=== PATIENT | female | born 1970 | race Two or more races ===

== ENCOUNTER → 2017-09-27 | Outpatient (CLI) | payer OTHER ==
[~2017-09-27] MED LIST: KENALOG-1010 MG/ML IM; ORPH100T PO; SYNTHROID200 MCG PO; ULTRACET PO; XOPENEX1.25 MG/0. IH
== END | disposition home or self-care (01) ==
LOC: RAD 13:36
DX: M54.5 Low back pain (principal); M22.41 Chondromalacia patellae, right knee

== ENCOUNTER 2017-11-01 13:00 | Outpatient (CLI) | payer OTHER | END 2017-11-01 19:53 | disposition home or self-care (01) | LOC: LAB 13:00 | DX: M06.09 Rheumatoid arthritis without rheumatoid factor, multiple sites (principal); M32.8 Other forms of systemic lupus erythematosus ==

== ENCOUNTER → 2017-12-02 | Outpatient (CLI) | payer OTHER | END | disposition home or self-care (01) | LOC: NUCLEAR 10:37 | DX: M81.0 Age-related osteoporosis without current pathological fracture (principal) ==

== ENCOUNTER 2017-12-05 10:40 | Outpatient (CLI) | payer OTHER | END 2017-12-05 11:25 | disposition home or self-care (01) | LOC: MRI 10:40 → RAD 10:40 → MRI 12-06 10:30 | DX: M54.2 Cervicalgia (principal) ==

== ENCOUNTER 2017-12-06 08:22 | Outpatient (CLI) | payer OTHER | END 2017-12-06 08:43 | disposition home or self-care (01) | LOC: MRI 08:22 | DX: M17.11 Unilateral primary osteoarthritis, right knee (principal); M25.561 Pain in right knee | CPT/HCPCS: 73721 ==

== ENCOUNTER → 2024-11-26 | Day surgery (SDC) | payer OTHER ==
[2024-11-19 14:06] VITALS: BP 122/85
[~2024-11-26] VITALS: Ht 172.7 cm; Wt 123.4 kg
[~2024-11-26] MED LIST changes: +AMBIEN5 MG; +BUPIVACAINE HCL/Mpf 0.5% 10ML VIAL ONE; +BUPROPION XL450 MG; +CEFTRIAXONE SODIUM 2,000 MG VIAL ONE; +CLONAZEPAM1 MG PO; +CYCLOSPORINE100 MG; +DIBUCAINE 30 GM TUBE ONE; +HEMOSTATIC MATRIX 1 KIT KIT TOP ONE; +LEVOTHYROXINE25 MCG PO; +LIDOCAINE HCL 1%/EPINEPHRINE 20ML VIAL IJ ONE; +METRONIDAZOLE/SODIUM CHLORIDE 500 MG/100 ML PIGGYBACK IV ONE; +MOUNJARO7.5 MG/0.5 SQ; +NEURONTIN300 MG PO; +PERCOCET 5-3251 EACH PO; +POVIDONE-IODINE 118 ML BOTT TOP ONE; +RECTICARE30 GM TOP; +VITAMIN D310 MCG/1 M
== END | disposition home or self-care (01) ==
LOC: CIR.AMB 06:15
PROVIDERS: ATTEND Surgery
DX: K60.1 Chronic anal fissure (principal); E11.9 Type 2 diabetes mellitus without complications